=== PATIENT | female | born 1985 | race Caucasian/White ===

== ENCOUNTER 2020-10-05 14:59 | Observation (INO) ==
[2020-10-05] MEDS ORDERED: MORPHINE 4 MG/1 ML VIAL IV ONE (16:19)
[2020-10-05] MEDS ORDERED: SODIUM CHLORIDE 0.9% 1,000 ML IV STA (16:19)
[2020-10-05] MEDS ORDERED: ONDANSETRON 4 MG/2 ML VIAL IV ONE (16:19)
[2020-10-05 16:40] LABS: Basophils # 0.1 10*3/uL (0.0-0.2); Basophils % 0.4 % (0.0-0.8); Eosinophils # 0.1 10*3/uL (0.0-0.87); Eosinophils % 0.8 % (0.00-10.9); Immature Granulocytes % 0.4 %; Immature Granulocytes Absolute 0.07 #; Lymphocytes # 4.2 10*3/uL (1.4-4.0); Lymphocytes % 26.7 % (21.3-54.2); Mean Corpuscular Volume 89.4 FL (87-102); Mean Platelet Volume 9.4 FL (9.6-12.0); Monocytes % 7.7 % (1.7-12.7); Platelet Count 329 T/CUMM (130-400); Red Cell Distribution Width 13.3 % (9.3-17.3); White Blood Count 15.6 T/CUMM (4-12)
[2020-10-05 16:53] LABS: Bacteria,Urine Occasional /HPF (Few); Bilirubin,Urine Negative (Negative); Blood, Urine Negative (Negative); Glucose,Urine (UA) Negative (Negative); Ketones,Urine Negative (Negative); Mucus,Urine Many /LPF (Occasional); Nitrite,Urine Negative (Negative); Protein,Urine Negative; RBC,Urine 3 /HPF (0-4); Squamous Epithelial Cell,Urine Occasional /HPF (0-10); Urine Appearance Slightly Hazy (Clear); Urine Color Yellow (Yellow); Urine Specific Gravity 1.021 (1.001-1.035); Urine Urobilinogen < 2.0 EU/DL (0.2-1.0); WBC,Urine 1 /HPF (0-6)
[2020-10-05 16:57] LABS: Alanine Aminotransferase 28 U/L (13-56); Albumin 3.4 G/DL (3.4-5.0); Alkaline Phosphatase 123 U/L (45-117); Aspartate Amino Transferase 17 U/L (0-37); Bilirubin,Total < 0.39 MG/DL (0.2-1.0); Blood Urea Nitrogen 9 MG/DL (7-18); Calcium 8.5 MG/DL (8.5-10.1); Carbon Dioxide 25 MMOL/L (21-32); Estimated Glom Filtration Rate 130 ML/MIN; Glucose 86 MG/DL (74-106); Osmolality,Calculated 270.8 MOS/KG (273-304); Potassium 3.9 MMOL/L (3.5-5.1); Sodium 137 MMOL/L (136-145); Total Protein 7.5 G/DL (6.4-8.2)
[2020-10-05] MEDS ORDERED: PIPERACILLIN/TAZOBACTAM 3,375 MG in SODIUM CHLORIDE 0.9% 100 ML IV STA (19:16)
[2020-10-05] MEDS ORDERED: PROMETHAZINE 25 MG/1 ML VIAL IM PRN (19:16)
[2020-10-05] MEDS ORDERED: BISACODYL 5 MG TABLET PO PRN (19:16)
[2020-10-05] MEDS ORDERED: ACETAMINOPHEN 325 MG TABLET PO PRN (19:16)
[2020-10-05] MEDS: ONDANSETRON 4 MG/2 ML VIAL IV PRN (19:42)
[2020-10-05] MEDS: HYDROmorphone 2 MG/1 ML VIAL IV PRN (19:42)
[2020-10-05] MEDS: LACTATED RINGERS 1,000 ML IV SCH (21:04)
[2020-10-05] MEDS: MORPHINE 4 MG/1 ML VIAL IV PRN (22:35)
[2020-10-06] MEDS: ONDANSETRON 4 MG/2 ML VIAL IV PRN (00:55)
[2020-10-06] MEDS: HYDROmorphone 2 MG/1 ML VIAL IV PRN ×3 (00:56→14:13)
[2020-10-06 01:20] LABS: Basophils # 0.1 10*3/uL (0.0-0.2); Basophils % 0.4 % (0.0-0.8); Eosinophils # 0.1 10*3/uL (0.0-0.87); Eosinophils % 0.7 % (0.00-10.9); Hematocrit 35.3 VOL% (35.7-47.0); Hemoglobin 10.8 GM/DL (12.0-16.0); Immature Granulocytes % 0.4 %; Immature Granulocytes Absolute 0.05 #; Lymphocytes # 4.5 10*3/uL (1.4-4.0); Lymphocytes % 32.5 % (21.3-54.2); Mean Corpuscular HGB Conc 30.6 GM/DL (32-36); Mean Corpuscular Volume 90.5 FL (87-102); Mean Platelet Volume 9.3 FL (9.6-12.0); Monocytes % 7.2 % (1.7-12.7); Neutrophils % 58.8 % (38.7-73.9); Platelet Count 301 T/CUMM (130-400); Red Cell Distribution Width 13.5 % (9.3-17.3)
[2020-10-06 01:49] LABS: Alanine Aminotransferase 21 U/L (13-56); Albumin 2.8 G/DL (3.4-5.0); Alkaline Phosphatase 99 U/L (45-117); Aspartate Amino Transferase 13 U/L (0-37); Bilirubin,Total < 0.39 MG/DL (0.2-1.0); Blood Urea Nitrogen 7 MG/DL (7-18); Calcium 7.7 MG/DL (8.5-10.1); Carbon Dioxide 25 MMOL/L (21-32); Estimated Glom Filtration Rate 130 ML/MIN; Glucose 98 MG/DL (74-106); Osmolality,Calculated 274.5 MOS/KG (273-304); Potassium 3.5 MMOL/L (3.5-5.1); Sodium 139 MMOL/L (136-145); Total Protein 6.2 G/DL (6.4-8.2)
[2020-10-06 02:06] LABS: PT Patient Result 11.2 SECS (9.8-11.9)
[2020-10-06] MEDS: PIPERACILLIN/TAZOBACTAM 3,375 MG in SODIUM CHLORIDE 0.9% 100 ML IV SCH ×3 (03:55→11:07)
[2020-10-06] MEDS: MORPHINE 4 MG/1 ML VIAL IV PRN (05:35)
[2020-10-06] MEDS ORDERED: TISSUE ADHESIVE 1 EACH APPLICATOR TOP ONE (08:42)
[2020-10-06] MEDS ORDERED: BUPIVACAINE MPF 0.25% 30 ML VIAL ONE (08:42)
[2020-10-06] MEDS ORDERED: LIDOCAINE 1%/EPI INJ 20 ML VIAL ONE (08:43)
[2020-10-06] MEDS ORDERED: PANTOPRAZOLE 40 MG TABLET PO SCH (09:00)
[2020-10-06] MEDS: LACTATED RINGERS 1,000 ML IV SCH ×2 (09:04→16:21)
[2020-10-06] MEDS ORDERED: LIDOCAINE 2% 5 ML VIAL ONE (09:52)
[2020-10-06] MEDS ORDERED: fentaNYL 100 MCG/2 ML VIAL ONE (09:52)
[2020-10-06] MEDS ORDERED: ROCURONIUM 50 MG/5 ML VIAL IV ONE (09:52)
[2020-10-06] MEDS ORDERED: propofoL 200 MG/20 ML VIAL IV ONE (09:53)
[2020-10-06] MEDS ORDERED: ONDANSETRON 4 MG/2 ML VIAL ONE (09:53)
[2020-10-06] MEDS ORDERED: MIDAZOLAM 2 MG/2 ML VIAL ONE (10:27)
[2020-10-06] MEDS ORDERED: LACTATED RINGERS 1,000 ML IV SCH (10:30)
[2020-10-06] MEDS ORDERED: DEXAMETHASONE 4 MG/1 ML VIAL ONE (10:55)
[2020-10-06] MEDS ORDERED: ACETAMINOPHEN INJ 1,000 MG/100 ML VIAL IV ONE (10:56)
[2020-10-06] MEDS ORDERED: GLYCOPYRROLATE 0.4 MG/2 ML VIAL ONE (11:10)
[2020-10-06] MEDS ORDERED: NEOSTIGMINE 10 MG/10 ML VIAL ONE ×2 (11:10)
[2020-10-06] MEDS ORDERED: HYDROmorphone 2 MG/1 ML VIAL IV PRN (11:37)
[2020-10-06] MEDS ORDERED: MEPERIDINE 25 MG/1 ML VIAL IV PRN (11:37)
[2020-10-06] MEDS ORDERED: ONDANSETRON 4 MG/2 ML VIAL IV PRN (11:37)
[2020-10-06] MEDS ORDERED: diphenhydrAMINE 50 MG/1 ML VIAL ONE ×2 (11:45→11:46)
[2020-10-06] MEDS ORDERED: diphenhydrAMINE 50 MG/1 ML VIAL IV ONE (11:45)
[2020-10-06 16:09] VITALS: BP 129/71
== END 2020-10-06 17:52 | disposition home or self-care (01) ==
LOC: N.ED 14:59 → N.EDINP 14:59 → N.3E 19:40
PROVIDERS: ADMIT Surgery; ATTEND Surgery
PROC: LAPCHOL (2020-10-06 10:22)